=== PATIENT | female | born 1960 | race Caucasian/White ===

== ENCOUNTER 2024-01-08 18:00 | Emergency (ER) | payer BC, SELFPAY ==
[2024-01-08 18:05] VITALS: BP 161/82
--- NOTE | 2024-01-08 20:49 | ED.MUSCINJ ---
HPI-Injury
General
Chief Complaint: Musculo-Skeletal Complaint
Source: patient
Exam Limitations: none
Time Seen by Provider: 01/08/24 20:36
History of Present Illness-Injury
Is this injury a work related problem?: No
Is pt an associate of [facility]/[place]?: No
Initial Injury comments:
This is a 63 year old female that comes in with c/o left knee pain. States that she knows that she has a Torn Meniscus on the left. States that she has an appointment with a surgeon on . Today she wasn't thinking and she stepped down and the
left knee buckled. States that she had shooting pain and she fell back onto her buttocks. State that she did not hit her head or have any LOC. States that she took 2 Advil around 3pm. Denies any fever, chills, nausea, vomiting, diarrhea, headache,
dizziness.
Past History
Past History
ED Past Medical History: Other (Right forearm fracture. Allergic rhinitis, left meniscus tear)
ED Past Surgical History: None
Social History
Tobacco: Former smoker
Alcohol: Occasional
Personal:
Living: with family
Review of Systems
Review of Systems
All Other Systems: ROS reviewed and negative except as documented in HPI and ROS
Constitutional: Reports no symptoms; Denies fever or chills
EENT: Reports no symptoms
Respiratory: Reports no symptoms
Cardiac: Reports no symptoms
ABD/GI: Reports no symptoms; Denies abdominal pain, nausea, vomiting or diarrhea
: Reports no symptoms
Musculoskeletal: Reports joint pain (left knee pain)
Skin: Reports no symptoms
Neurological: Reports no symptoms; Denies dizzy or headache
Psychiatric: Reports no symptoms
Musculoskeletal Injury Exam
Musculoskeletal Injury Exam
Left Posterior Knee:
Pain with Movement?: Mild
Tender to palpation?: None
Soft tissue swelling?: None
External deformity and angulation?: None
Joint effusion?: None
Contusion?: None
Hematoma-local bleeding into tissue?: None
Strain- Sprain- Tear (Connective tissue injury)?: None
Crepitus with movement?: No
Joint instability?: No
Malalignment/deformity?: No
Range of motion: Limited (due to pain)
Distal skin color and temperature: normal-warm & good color
Capillary Refill: normal
Normal distal neurovascular exam?: Yes
Phy Exam
General Physical Exam
General Presentation: well appearing and no apparent distress
General age: appears stated age
General Skin: warm and dry
General Habitus: normal
General Mental: alert
General Hydration: appears well hydrated
ENT Exam
ENT Exam: TM's normal, pharynx normal and neck supple
Eye Exam
Eye Exam: EOMI
Musculoskeletal Exam
Musculoskeletal Exam: no edema and other (negative for tenderness with palpation of the left knee. Patient able to straight knee but discomfort with flexion. )
Skin Exam
Skin Exam: normal color, warm/dry, no rash and no petechia
Psychiatric Exam
Psychiatric Exam: normal mood/affect
Injury Course
Orders/Labs/Results
Orders:
Orders
01/08/24 18:13
Knee, Left 4 or More Views [CR Knee - Left 4 Or More View*] Urgent
Comment:
Reason For Exam: pain after a fall
01/08/24 20:49
Knee Immobilizer Left-Treatmen ONCE
Acetaminophen [Tylenol] 1,000 mg PO NOW STA
Ibuprofen [Motrin] 600 mg PO NOW STA
MDM/Problems Addressed
Differential Diagnosis Includes:
worsening of Meniscus tear. Knee fracture
MDM/Problems Addressed:
This is a 63 year old female that comes in with c/o left knee pain. States that she knows that she has a left Meniscus tear and she wasn't thinking and she stepped down and her left knee buckled. States that she had shooting pain and fell back onto
her buttocks.
Will get X-ray. Explained to patient that there are no fractures. However, unable to tell patient if the tear has gotten worse. May need to repeat her MRI and will need to follow up with the radiator specialist. Will place patient in a Knee
immobilizer. Patient to use Tylenol and Ibuprofen for pain. Return with any concerns.
Patient then refused the knee immobilizer and just wanted an morgan wrap and crutches.
Chronic conditions affecting care:
left meniscus tear
Acute Exacerbation and/or Progression of Chronic Illness:
Left meniscus tear
*Radiology
Radiology exam reviewed: radiology read reviewed (left knee- Normal)
*Pulse Oximetry
Patient hypoxic: no
*EKG
Interpreted by ED Provider?: NA
Rate: EKG- N/A
*Paintings Conservator Interpretation
Rate: Paintings Conservator- N/A
*Critical Care Note
Total Time (30-74mins, 75-104mins- exclusive of procedures): Not Applicable
ED Attending Note
-
Portions of this chart may have been created with voice recognition software.� Occasional wrong word or��sound alike� substitutions may have occurred due to the inherent limitations of voice recognition software.
Discharge Plan
Departure
Patient Disposition: Home (Routine Discharge)
Date of Disposition: 01/08/24
Time of Disposition: 20:58
Patient with high blood pressure during this ER visit?: Yes
Condition: Good
Covid-19: Not Applicable
Discharge Problem:
Acute pain of left knee
Instructions: Knee Immobilizer (DC), BLOOD PRESSURE, RICE Therapy
Activity Restrictions/Additional Instructions:
As discussed, your x-ray is normal. You may need a repeat MRI of the left knee to see if there is further damage. Please call the radiator specialist for further evaluation. Please use ice to the knee. Tylenol 1000mg every 6 hours and alternate
with Ibuprofen 600mg every 6 hours with food. So if you take Tylenol at 9am the Ibuprofen is due at 12noon, Tylenol at 3pm and Ibuprofen at 6pm. Use the Knee immobilizer when you are up walking around and elevate your leg on a pillow when you are in
bed. IF YOU HAVE ANY OTHER CONCERNS PLEASE RETURN TO THE EMERGENCY ROOM
Interventions
Interventions:
*Risk Screen - Suicide Last Done: 01/08/24 18:13
*General Assessment Last Done: 01/08/24 20:10
*Neglect/Abuse Screening Last Done: 01/08/24 18:13
*ED COVID-19 Vaccine History Last Done: 01/08/24 20:10
ED-Musculoskeletal Assessment Last Done: 01/08/24 20:10
Discharge Date and Time
Print Language: INDONESIAN
[2024-01-08] MEDS: TYLENOL 1000 MG PO (20:57)
[2024-01-08] MEDS: MOTRIN 600 MG PO (20:58)
[2024-01-08 22:15] VITALS: BP 160/80
== END 2024-01-08 22:16 | disposition home or self-care (01) ==
LOC: EMR 18:00
PROVIDERS: EMERGENCY PHYSICIAN Student in an Organized Health Care Education/Training Program; FAMILY PHYSICIAN Internal Medicine
DX: M25.562 Pain in left knee (principal); Z87.891 Personal history of nicotine dependence
CPT/HCPCS: 99283; 29505; 73564

== ENCOUNTER → 2024-09-02 15:09 | Outpatient (REF) | payer BC, SELFPAY | LOC: WDC 15:09 | PROVIDERS: ATTENDING PHYSICIAN Nurse Practitioner Family | DX: Z12.31 Encounter for screening mammogram for malignant neoplasm of breast (principal) | CPT/HCPCS: 77063; 77067 ==